=== PATIENT | female | born 1960 | race Caucasian/White ===

== ENCOUNTER 2017-01-03 12:00 | Inpatient (IN) | payer SELFPAY ==
[~2017-01-03] VITALS: Ht 154.9 cm; Wt 115.0 kg
--- NOTE | ~2017-01-03 | DS ---
PATIENT'S NAME: BERNABE MORRIS [facility] AGE: 56 Y [address] ROOM: [place] [address] LOCATION: GPCU ADMIT DATE: 01/03/2017 Discharge Summary DISCHARGE DATE: 01/10/2017 FAMILY PHYSICIAN: Yaritza Crain DO ATTENDING PHYSICIAN: Danica Caicedo FINAL DIAGNOSES: 1. Vancomycin-resistant enterococcus urinary tract infection on antibiotics. 2. C. diff colitis, resolving. 3. Coronary artery disease, status post coronary artery bypass graft history. 4. Loq-[id number] myocardial infarction, refused evaluation. 5. Hypertension. 6. Chronic pain. 7. History of cerebrovascular accident with right hemiplegia, aphasia, and dysphagia. 8. History of seizure. 9. Ileus, resolved. 10. Hypertension. 11. History of multiple sclerosis. CONSULTATIONS: 1. GI, Dr. Hutson. 2. Cardiology, Dr. Mcfarlane. PROCEDURES: None. REASON FOR ADMISSION: This is a 56-year-old female who was transferred for recurrent UTI. The patient has a history of multiple sclerosis, history of CVA in the past, and is CAD status post CABG. The patient presented with VRE UTI. The patient also had concern for fecal impaction and hypertensive urgency at the point of admission. Please see Dr. Caicedo's admission H and P for further details. DIAGNOSTIC STUDIES: Transthoracic echocardiogram was done that showed normal left ventricular contractility with ejection fraction 50% to 55% with normal wall motion. Left atrium mildly dilated. Moderate mitral annular calcification was noted. Lower arterial duplex study was done. The patient underwent a stress test that showed medium anterior ischemia of moderate degree and medium lateral ischemia of moderate degree with LVEF of 44%. Mild hypokinesia involving the anterior and lateral segments with inferior wall normal was noted. Duplex imaging of bilateral lower extremity was done that suggested moderate diffuse calcific disease throughout lower extremity with biphasic waveforms. Hemodynamically significant stenosis of the proximal, superficial, femoral, and proximal popliteal arteries was noted. Monophasic PATIENT'S NAME: BERNABE MORRIS [facility] AGE: 56 Y [address] ROOM: [place] [address] LOCATION: GPCU ADMIT DATE: 01/03/2017 Discharge Summary DISCHARGE DATE: 01/10/2017 FAMILY PHYSICIAN: Yaritza Crain DO ATTENDING PHYSICIAN: Danica Caicedo A waveform on the left dorsalis pedis artery was noted. No focal area of hemodynamically significant stenosis identified at the right lower extremity in the arterial system. Lactate 1.1 on admission. Serial Accu-Cheks were done and were in the range of 126-343. Troponin I was trended and was elevated at 0.252 and subsequently was 0.134 and trending down. Pro-BNP 5951. Serial CBCs were done. White count on admission was 12.6 and subsequently was 9.3, hemoglobin, hematocrit, and platelet levels were within normal range. Serial BMPs were done. Sodium on admission was 153, after treatment, sodium at the time of discharge was 144 and stable; potassium 3.3 on admission, after supplementation was 3.7 and stable; the patient had acute kidney injury; creatinine 1.7 on admission and subsequently was 1.1 after treatment. Hemoglobin A1c 6.4, phenytoin level 8.5 on admission. The patient was briefly placed on a heparin drip that was monitored with PTT levels. INR was 1.4 on admission. UA showed many bacteria, urine creatinine random 149, urine sodium random 42. TSH 0.276. Procalcitonin level 0.13. D-dimer elevated 1.0. Chest x-ray was done on admission and showed no vascular congestion or acute parenchymal infiltrate, past cardiac surgery, and enteric catheter was noted. CT chest PE protocol was done for elevated D-dimer and showed no evidence of PE. Minor subsegmental atelectasis with no consolidation or effusion noted. No aortic lesion noted. No lymphadenopathy noted. Cholelithiasis detected with NG tube in stomach. Left foot x-ray was done for left great toe discoloration and showed no acute bone fracture. Hammertoe deformity of the 2nd, 3rd, 4th, and 5th toes was noted with bone osteopenia and vascular calcification. The patient had a UA with urine culture done at the referral hospital that showed VRE UTI. Blood culture was done at [facility] and remained negative. Urine culture after treatment remained negative. C. diff test was positive on 01/07/2017. HOSPITAL COURSE: This is a 56-year-old female who presented with recurrent UTI, the patient has a history of MS and history of CVA in the past with residual right hemiplegia, aphasia, and dysphagia. The patient answers in yes or no responses only. The patient presented with recurrent UTI, she was found to have VRE UTI, as per reviewed records from the referral hospital. She was transferred for higher level of care. Upon admission to [facility], the patient was found to be in hypertensive urgency. She also had hypernatremia. There was also concern about fecal impaction. After admission to [facility], the patient was placed on Zyvox for VRE UTI, this was continued, and the patient was almost finishing a course of antibiotic at the time of discharge. For ileus, the patient had NG tube that was placed. GI was consulted. The PATIENT'S NAME: MORRIS KIDD [facility] AGE: 56 Y [address] ROOM: [address] [address] LOCATION: GPCU ADMIT DATE: 01/03/2017 Discharge Summary DISCHARGE DATE: 01/10/2017 FAMILY PHYSICIAN: Yaritza Crain DO ATTENDING PHYSICIAN: Danica Caicedo A patient underwent a flexible sigmoidoscopy. Subsequently, her ileus resolved. She was tolerating p.o. She had a bowel movement. No impaction was noted on the flex sig. Atonic colon was noted with stool that was present. The patient continued to do well and was having regular bowel movements. By the time of discharge, her NG tube was discontinued. The patient also had hypertensive urgency. She was placed on blood pressure medication and her blood pressure was stable throughout the course of this hospitalization. At the time of discharge, her home medications were resumed, and the patient's blood pressure was stable. The patient also had hypokalemia that was supplemented and resolved subsequently. The patient developed C. diff. She was placed on Flagyl and she will finish a course of Flagyl. The patient developed chest pain during this admission. The patient underwent a 2D echo. Cardiology was consulted. She underwent a stress test that showed possible ischemia. The patient was recommended heart catheterization; however, the patient and the POA refused any further aggressive workup and they decided that the patient would not want any further aggressive measures or aggressive workup. She was okay with antibiotics and IV fluids, in future, she would also not want any further hospitalization per the patient and POA. We consulted Palliative Care, the patient's wishes were documented, I left a message with Dr. Crain's nurse about the patient's wishes about further care. If she changes her mind, she will let her primary care physician know. The patient also had 3rd degree heart block and was asymptomatic and also had NSVT, but refused any further evaluation from a cardiac perspective. The patient had left great toe discoloration, there was concern for ischemia, arterial duplex was done and findings are as above. X-ray was done and findings are as above; however, the patient refused any further workup and did not want any aggressive measures and procedures. The patient also refused any further lab work for about 3-4 days prior to discharge. She was then discharged to [facility] in stable condition. I left a message for Dr. Crain about the patient's condition and further wishes. DISCHARGE INSTRUCTIONS: The patient is discharged to [facility] in stable condition. Follow up with Dr. Yaritza Crain in 3-4 days' time. She is a DNR/DNI. She is in contact isolation. She is placed on a regular diet. Calorie count is not needed. She is not n.p.o. The patient needs to be upright at 90 degrees with meals, 1:1 feeding advised, weightbearing is as tolerated, OT, PT, and Speech Therapy to evaluate and treat as indicated. O2 p.r.n. to keep sats more than 90%. Accu-Cheks a.c. and h.s. advised. CBC and PATIENT'S NAME: MORRIS KIDD [facility] AGE: 56 Y [address] ROOM: [address] [address] LOCATION: GPCU ADMIT DATE: 01/03/2017 Discharge Summary DISCHARGE DATE: 01/10/2017 FAMILY PHYSICIAN: Yaritza Crain DO ATTENDING PHYSICIAN: Danica Caicedo BMP at followup with PCP. Dilantin level at followup with PCP. PCP to manage Dilantin. She does not have a urinary catheter as this was removed on the day of discharge. She may not have alcoholic beverages. Rehab potential is poor. Discharge potential is poor. The patient and family are aware of condition and prognosis. I attempted to reach her POA, but was not able to get in touch with her, she was aware of the discharge to [facility]. May crush appropriate medications. DISCHARGE MEDICATIONS: 1. Aspirin 325 mg p.o. daily for CAD. 2. Lipitor 80 mg p.o. daily for dyslipidemia. 3. Baclofen 10 mg p.o. t.i.d. for spasms. 4. Plavix 75 mg p.o. daily for CAD. 5. Insulin Humalog 5 units subcu 3 times daily with meals for diabetes mellitus. 6. Insulin Humalog sliding scale insulin moderate level 3 times daily with meals p.r.n. 7. Lantus insulin 10 units subcutaneous at h.s. diabetes mellitus. 8. Lactobacillus 1 tab p.o. b.i.d. for GI prophylaxis. 9. Vasotec 20 mg p.o. b.i.d., hold systolic blood pressure less than 110, for hypertension dose decreased. 10. Flagyl 500 mg p.o. q.8 h. for C. diff, last dose 01/16/2017. 11. MS Contin 15 mg p.o. b.i.d. for pain. 12. Tylenol 650 mg p.o. q.4 h. p.r.n. pain/fever. 13. Lyrica 50 mg p.o. daily for pain. 14. Lasix 40 mg p.o. b.i.d. for CHF, hold systolic blood pressure less than 110. 15. Zaroxolyn 2.5 mg p.o. 3 days a week on Friday, Friday, and Friday for CHF, hold systolic blood pressure less than 110. 16. Glucagon 1 mg subcutaneous for hypoglycemia p.r.n., new medication. 17. Glucose 16 g p.o. for hypoglycemia p.r.n. 18. Nystatin 1 application topically everyday p.r.n. for rash. 19. Coreg 12.5 mg p.o. b.i.d. for hypertension, hold systolic blood pressure less than 110, and heart rate less than 60. 20. Dilantin 500 mg p.o. q.h.s. for seizure, PCP to manage based on Dilantin level. 21. Zoloft 50 mg p.o. q.h.s. for depression. 22. Dulcolax 10 mg rectally everyday p.r.n. constipation. 23. Hydrocortisone 1 application topically twice daily p.r.n. pruritus. 24. Ranitidine 150 mg p.o. b.i.d. for GERD. 25. Savannah 5/325 mg 1 tab p.o. q.8 h. p.r.n. pain. 26. Savannah 5/325 mg 1 tab p.o. t.i.d. for pain. 27. Calcium with vitamin D3 tablet 1 tab p.o. 3 times daily for supplement. 28. Alem 60 mg p.o. b.i.d. for allergies. 29. Robitussin DM 10 mL p.o. q.4 h. p.r.n. cough/congestion. PATIENT'S NAME: MORRIS KIDD [facility] AGE: 56 Y [address] ROOM: [place] [address] [facility] ADMIT DATE: 01/03/2017 Discharge Summary DISCHARGE DATE: 01/10/2017 FAMILY PHYSICIAN: Yaritza Crain DO ATTENDING PHYSICIAN: Danica Caicedo 30. Imodium 4 mg p.o. p.r.n. diarrhea 1 time dose. 31. Milk of magnesia 30 mL p.o. daily p.r.n. constipation. 32. MiraLAX 17 g p.o. b.i.d. for constipation. 33. Mucinex 600 mg p.o. q.12 h. p.r.n. congestion. 34. Senna S tablets 2 tabs p.o. b.i.d. for constipation. 35. Zyvox 600 mg p.o. b.i.d. for 3 days, indication VRE UTI. 36. Nitroglycerin 0.4 mg sublingual p.r.n. chest pain. 37. Ativan 0.5 mg p.o. q.6 h. p.r.n. anxiety. This patient was managed by hospitalist, Cardiology team, and GI teams during this admission. MYRA GAMBINO MD MT/maren /[id number] CC: Yaritza Crain DO d: 01/11/17 0400 t: 01/13/17 2144, DISCHARGE SUMMARY
--- NOTE | ~2017-01-03 | ECHO ---
Transthoracic Echocardiography Report (TTE) Demographics Patient Name MORRIS KIDD Date of Study 01/05/2017 Patient Number [id number] Visit Number [id number] Date of 1960 Room Number G6340 Gender Female Number Age 56 year(s) Referring Denys Watters Finisher [employer]ocks Franklin Tsai Physician RDCS, RVT Physician Interpreting Denys Watters Special Class Welder Physician Supervising Ordering Denys Watters MD/MLP Physician Nurse Stress Pipe And Tank Fabricator Conclusions Contractility Score Summary Normal Left Ventricular contractility was noted. Summary Technically difficult exam. The estimated left ventricular ejection fraction is 50-55% with normal WM and internal dimensions.Moderate concentric left ventricular hypertrophy. The left atrium is mildly dilated. Moderate mitral annular calcification. TDS and RA not well visualized. Procedure Type of Study TTE procedure:2D Echocardiogram. Procedure Date Date: 01/05/2017 Start: 10:19 AM Study Location: Inpatient Portable Technical Quality: Limited visualization due to body habitus. Indications:Abnormal ECG. Appropriate Use Criteria: 9 Patient Status: Routine HR: 79 bpm M-Mode/2D Measurements LV Diastolic Dimension: 2.86 cm LV Systolic Dimension: 1.72 cm LV Septum Diastolic: 1.5 cm LV PW Diastolic: 1.22 cm AO Root Dimension: 3.1 cm Cardiac Output: 6.17 l/min AV Cusp Separation: 1.9 cm RV Diastolic Dimension: 3.36 cm LA volume: 79 ml LVOT: 2.3 cm LVOT VTI: 18.8 cm LV Stroke volume: 78.07 ml Doppler Measurements AV Peak Velocity: 0.85 m/s MV Peak E-Wave: 0.65 m/s AV Peak Gradient: 2.92 mmHg MV Peak A-Wave: 0.95 m/s AV Mean Gradient: 2 mmHg MV E/A Ratio: 0.69 LVOT Peak Velocity: 0.68 m/s MV P1/2t: 63 msec TR Gradient:5.38 mmHg PV Peak Velocity: 0.9 m/s Estimated RAP:5 mmHg PV Peak Gradient: 3.26 mmHg Estimated RVSP: 10 mmHg Estimated PASP: 10.38 mmHg E' Septal Velocity: 0.06 m/s A' Septal Velocity: 0.11 m/s E' Lateral Velocity: 0.08 m/s A' Lateral Velocity: 0.14 m/s Findings Left Ventricle Moderate concentric left ventricular hypertrophy with low normal EF,WM and internal dimension. Right Ventricle Right ventricle not well visualized. Left Atrium The left atrium is mildly dilated. Right Atrium Right atrium not well visualized. Mitral Valve Moderate mitral annular calcification. Trivial mitral regurgitation by color Doppler. Aortic Valve Normal aortic valve structure and function. Tricuspid Valve Trivial tricuspid regurgitation by color Doppler. Pulmonic Valve Normal pulmonic valve structure and function. Pericardial Effusion No evidence of pericardial effusion. Miscellaneous Visualized portions of the aortic root and ascending aorta appear normal in size. Pleural Effusion No evidence of pleural effusion. Contractility Score LV regional wall motion:(0-Non visualized 1-Normal 2-Hypokinesis 3-Akinesis 4-Dyskinesis 5-Aneurysm) Signature dtt: Janene Mcfarlane dtd: 01/05/17 1019 Physician Self Edit
--- NOTE | ~2017-01-03 | HP ---
PATIENT'S NAME: MORRIS KIDD [facility] AGE: 56 Y [address] ROOM: [address] [place], [place] [address] LOCATION: [facility] ADMIT DATE: 01/03/2017 History & Physical DISCHARGE DATE: FAMILY PHYSICIAN: PHYSICIAN, UNKNOWN ATTENDING PHYSICIAN: IAN ARIZA DATE OF SERVICE: CHIEF COMPLAINT: Recurrent UTIs. HISTORY OF PRESENT ILLNESS: A 56-year-old lady with a past medical history of multiple sclerosis, coronary artery disease, status post CABG, unfortunately complicated by left MCA stroke, resident of a nursing facility, had been battling with recurrent UTIs for many years now, presented to the [facility] about 1 week ago with burning on urination. She was admitted there, and she was started on IV antibiotics including Zosyn, and then later switched to Unasyn. Her urinary symptoms did improve a little, but during this course of hospitalization, she developed other complication including ileus, which was diagnosed on the CT of the abdomen, which also showed a big fecal ball in the rectum causing the loop dilatation proximal to it. She also developed multiple electrolyte abnormalities including MERCY on the CKD. She was transferred here to [facility] for further medical care. She is dysphasic secondary to her stroke in the past, but she does answer in yes or no and speaks very little. On my questioning, she said she is not having any chest pain, any shortness of breath. Does not have any dizziness or trouble swallowing, but she did endorse having abdominal pain and pointed to her center of the abdomen. She also complained that she is having hard time moving her bowels at this point. Still complaining of burning on urination and endorsing having colds as well as fever. She denied any orthopnea, PND, or leg swelling at this point. REVIEW OF SYSTEMS: All other systems were reviewed and were negative except what is in mentioned in the HPI. PAST MEDICAL HISTORY: 1. Coronary artery disease, status post CABG, complicated by stroke. 2. Stroke in the left MCA with a dense right hemiparesis as well as dysphasia, multiple sclerosis. 3. Insulin-dependent diabetes mellitus, complicated by kidney disease. 4. Chronic kidney disease, stage 4. 5. Peripheral vascular disease, status post right internal carotid stent. 6. Dysphasia. PATIENT'S NAME: BERNABE MORRIS [facility] AGE: 56 Y [address] ROOM: [place] [address] LOCATION: [facility] ADMIT DATE: 01/03/2017 History & Physical DISCHARGE DATE: FAMILY PHYSICIAN: PHYSICIAN, UNKNOWN ATTENDING PHYSICIAN: IAN ARIZA 7. Neuromuscular bladder dysfunction. 8. Depression. 9. Seizures. 10. Hyperlipidemia. 11. Essential hypertension. ALLERGIES: THE PATIENT IS ALLERGIC TO PENICILLIN. SHE TOLD ME THAT SHE GETS SWELLING OF THE THROAT WELL RASH, BUT APPARENTLY, SHE GOT UNASYN WELL ZOSYN AT THE OTHER HOSPITAL WITHOUT ANY ADVERSE EVENT. FAMILY HISTORY: On inquiry, it appears that it is positive for coronary artery disease, stroke, as well as diabetes in both mom and dad. SOCIAL HISTORY: The patient has never been a smoker. Lives in a nursing facility. MEDICATIONS: Being reconciled right now. PHYSICAL EXAMINATION: VITAL SIGNS: Blood pressure 205/97, 65, 16, afebrile. GENERAL: No acute distress. Alert and oriented x3. HEENT: Head: Atraumatic, normocephalic. Eyes: Nonicteric. No pallor. Oropharynx: Dry mucous membranes with thick secretions noted. CARDIOVASCULAR: S1, S2. No murmurs, gallops, or rubs. LUNGS: Clear to auscultation bilaterally. ABDOMEN: Obese, soft. Some mild tenderness noted in the epigastric region. Bowel sounds are hypoactive. EXTREMITIES: Do not reveal any edema, but the left great toe does have blue discoloration on it. PSYCH: Could not be assessed at this point because of the patient's dysphasia. NEURO: She has gross motor dysfunction on the right upper and lower extremities. Power 1/5 in both upper and lower right extremities. ASSESSMENT AND PLAN: Hypertensive urgency. Insulin-dependent diabetes mellitus. Acute kidney injury and chronic kidney disease stage 4. Vancomycin-resistant Enterococcus faecalis acute cystitis. Ileus with likely bowel obstruction, partial. Peripheral vascular disease. Hypernatremia Hypokalemia. PATIENT'S NAME: BERNABE MORRIS [facility] AGE: 56 Y [address] ROOM: [place] [address] LOCATION: [facility] ADMIT DATE: 01/03/2017 History & Physical DISCHARGE DATE: FAMILY PHYSICIAN: PHYSICIAN, UNKNOWN ATTENDING PHYSICIAN: IAN ARIZA Epilepsy. PLAN: The patient is going to be admitted to medical-surgical unit. She will be given labetalol to treat her hypertensive urgency at this point. Urine cultures came back positive for VRE, and we are going to treat this with linezolid IV at this point. NG is in place, which is clamped, and if she gets nauseous or vomiting, we will put it to suction. GI consultation has been requested for this fecal rectal ball, and per them, flex-sig will be done. We will obtain a C. diff assay as well. Free water flushes to correct hypernatremia. Replace K. We will reduce her home dose of insulin given her n.p.o. status. We will get Dopplers of the lower extremities arterial. Convert phenytoin 500 p.o. to IV. We will obtain blood cultures. The patient is a DNR/DNI. MD PANTERA FLEMING/teresal /[id number] D: 245 T: 843 HISTORY & PHYSICAL
--- NOTE | ~2017-01-03 | ENPV ---
Vascular Lower Extremities Arterial Duplex Procedure Demographics Patient Name MORRIS KIDD Date of Study 01/07/2017 Patient Number [id number] Gender Female Date of 1960 Age 56 Visit Number [id number] Height 61 Accession Number [id number] Weight 256.84 Referring Fina Loera PA-C Interpreting Diego Kern MD Physician Physician Physician Ordering Fina Jack I Stone Hand Physician EVY Dairy Feed Sales Consultant Otilia Yoder RDCS, RVT Franklin Tsai RDCS, RVT Conclusions Summary Duplex imaging of the bilateral lower extremities suggests mild to moderate diffuse calcific disease throughout the lower extremities with biphasic waveforms. Duplex imaging of the left leg reveals a hemodynamically significant stenosis of the proximal superficial femoral and proximal popliteal arteries. Monophasic waveform seen on left dorsalis pedis artery. No focal area of hemodynamically significant stenosis identified at right lower extremity arterial system. Procedure Type of Study: Extremities Arteries:Lower Extremities Arterial Duplex, Arterial Duplex Lower Extremity Bilateral. Indications for Study:Limb ischemia/ digital ischemia. Appropriate Use Criteria:9 Patient Status:Routine. Study Location:Inpatient Portable. Technical Quality:Limited visualization due to patient immobility. Risk Factors - The patient's risk factor(s) include: renal failure , insulin-treated diabetes mellitus, treated arterial hypertension, prior DE and prior CABG. - The patient has a former tobacco history. Stenosis - A stenosis was found in the Left Prox SFA. Measurements:Pre Stenosis PSV: 116 cm/s.Stenosis PSV:205 cm/s.Post Stenosis PSV: 66 cm/s. - A stenosis was found in the Left Prox Popliteal. Measurements:Pre Stenosis PSV: 65 cm/s.Stenosis PSV:210 cm/s.Post Stenosis PSV: 153 cm/s. Velocities are measured in cm/s ; Diameters are measured in cm LE Duplex Measurements + ++-----+ +----+---+ + ! !!Right! !Left! ! ! + ++-----+ +----+---+ + !Location !!PSV !Wave Desc. ! !PSV!Wave Desc. ! + ++-----+ +----+---+ + !Femoral !!110 !Biphasic ! !104!Triphasic ! + ++-----+ +----+---+ + !PFA !!108 !Biphasic ! !49 !Biphasic ! + ++-----+ +----+---+ + !Prox SFA !!84 !Biphasic ! !205!Biphasic ! + ++-----+ +----+---+ + !Mid SFA !!65 !Biphasic ! !66 !Biphasic ! + ++-----+ +----+---+ + !Dist SFA !!100 !Biphasic ! !58 !Biphasic ! + ++-----+ +----+---+ + !Prox Popliteal !!86 !Biphasic ! !210!Biphasic ! + ++-----+ +----+---+ + !Mid Popliteal !! ! ! !32 ! ! + ++-----+ +----+---+ + !Dist Popliteal !!74 !Biphasic ! !63 !Biphasic ! + ++-----+ +----+---+ + !Dist LEAD MATERIAL HANDLER !!36 !Biphasic ! !84 !Biphasic ! + ++-----+ +----+---+ + !DP !!33 !Biphasic ! !10 !Monophasic ! + ++-----+ +----+---+ + Signature dtt: Fabian Cortez dtclay: 01/07/17 1003 Physician Self Edit
--- NOTE | ~2017-01-03 | ENPV ---
Vascular Lower Arterial Plethysmography Procedure Demographics Patient Name MORRIS KIDD Date of Study 01/03/2017 Patient Number [id number] Gender Female Date of 1960 Age 56 Visit Number [id number] Height 61 Accession Number [id number] Weight 256.01 Referring Marifer Yeboah Interpreting [facility] Physician Physician Vicenta Aragon Physician Ordering Marifer Yeboah Concrete Pavement Installer Physician Geophysical Prospecting Permit Agent Ana Lilia Salazar RVT Conclusions Summary Unable to compress MECHANIC SENIOR,DPA and great toe bilaterally. Procedure Type of Study: Extremities Arteries:Lower Arterial Plethysmography, Ankle/Brachial Indicies. Indications for Study:Limb ischemia/ digital ischemia. Appropriate Use Criteria:9 Patient Status:Routine. Study Location:Inpatient Portable. Technical Quality:Adequate visualization. Velocities are measured in cm/s ; Diameters are measured in cm Pressures + ++--------+-----+----+--------+-----+ ! !!Right ! !Left! ! ! + ++--------+-----+----+--------+-----+ !Location !!Pressure!Ratio! !Pressure!Ratio! + ++--------+-----+----+--------+-----+ !Ankle PT !!0 !0 ! !0 !0 ! + ++--------+-----+----+--------+-----+ !DP !!0 !0 ! !0 !0 ! + ++--------+-----+----+--------+-----+ !Great Toe !!0 !0 ! !0 !0 ! + ++--------+-----+----+--------+-----+ - Brachial Pressure:Right: 194.Left:195. - PER:Right: 0.Left: 0. Plethysmographic Digit Evaluation +---------++--------+-----+ ++--------+-----+ + ! !!Right ! !Left !! ! ! ! +---------++--------+-----+ ++--------+-----+ + !Location !!Pressure!Ratio!PPG Wave Form !!Pressure!Ratio!PPG Wave Form ! +---------++--------+-----+ ++--------+-----+ + !Great Toe!!0 !0 ! !!0 !0 ! ! +---------++--------+-----+ ++--------+-----+ + Signature dtt: Babar Yadav: 01/03/17 1733 Physician Self Edit
--- NOTE | ~2017-01-03 | CON ---
PATIENT'S NAME: MORRIS KIDD [facility] AGE: 56 Y [address] ROOM: [place] [address] LOCATION: GPCU ADMIT DATE: 01/03/2017 Consultation DISCHARGE DATE: 01/10/2017 FAMILY PHYSICIAN: Yaritza Crain DO ATTENDING PHYSICIAN: Danica Caicedo DATE OF CONSULTATION: 01/07/2017 REFERRING PHYSICIAN: Ramírez Quezada MD PALLIATIVE MEDICINE CONSULT LOCATION: PCU room 6340. CHIEF COMPLAINT: Palliative care referral for goals of care discussion. HISTORY OF PRESENT ILLNESS: The patient is a 56-year-old female, resident of [facility], who was admitted to the [facility] with fecal impaction and VRE urinary tract infection. The patient was found to be in the second-degree and third- degree heart block and developed chest pain after transfer from the [facility]. The patient has a history of multiple sclerosis, coronary artery disease, status post CABG, left MCA stroke with resulting aphasia and right- sided weakness as well as recurrent urinary tract infections. It should also be noted that the family reports the patient was on hospice from February 2014 through April 2014 after a hospitalization for bradycardia. The patient did subsequently recover and discharge from hospice services. She reports that she has lived at the retirement for many years. She has chronic back pain and is on MS Contin. Reportedly during this hospital stay, the patient has been refusing EKGs and further lab draws. Thus, Palliative Care has been consulted to discuss goals of care. PREVIOUS OPERATIONS: 1. CABG. 2. Right carotid stenting. PAST MEDICAL HISTORY: 1. Multiple sclerosis. 2. Coronary artery disease, status post CABG. 3. Left MCA stroke with right hemiparesis and aphasia. 4. Multiple sclerosis. 5. Insulin-dependent diabetes mellitus. 6. Chronic kidney disease, stage 4. 7. Peripheral vascular disease. PATIENT'S NAME: MORRIS KIDD [facility] AGE: 56 Y [address] ROOM: [place] [address] LOCATION: GPCU ADMIT DATE: 01/03/2017 Consultation DISCHARGE DATE: 01/10/2017 FAMILY PHYSICIAN: Yaritza Crain DO ATTENDING PHYSICIAN: Khalid,Mishra A 8. Neuromuscular bladder dysfunction. 9. Depression. 10. Seizures. 11. Hypertension. MEDICATIONS: Please see current MAR. ALLERGIES: PENICILLIN. SOCIAL HISTORY: The patient never . She has lived at the retirement for many years, 5+ years. No history of tobacco or alcohol use. Her aunt is her power of securities attorney. FAMILY HISTORY: Coronary artery disease, stroke, and diabetes in both her parents. REVIEW OF SYSTEMS: GENERAL: Appetite is good. No recent fever, chills, or night sweats since hospitalization. Denies any changes in weight. HEENT: No new changes in vision or hearing. Does complain of a headache. This is most likely related to the nitroglycerin drip that she is on. RESPIRATORY: Denies shortness of breath or cough. CARDIOVASCULAR: Denies chest pain at the current time, but as previously reported, she is on a nitroglycerin drip. When she does have chest pain, it is midsternal, radiating up into the neck. GASTROINTESTINAL: Does complain of some abdominal discomfort. Denies feeling nausea or vomiting. The patient denies any difficulties chewing or swallowing. GENITOURINARY: She has a Baptiste catheter. Does have a history of recurrent urinary tract infections. Reports that she does not have a chronic indwelling Baptiste catheter though. MUSCULOSKELETAL: Reports that she has chronic back pain, though denies any pain at this time. NEUROLOGICAL: No numbness or tingling. No recent seizures. Denies dizziness. INTEGUMENTARY: No rashes or open areas. HEMATOLOGICAL: No new bruising or bleeding. PSYCHIATRIC: She denies feeling overly depressed or anxious. PHYSICAL EXAMINATION: VITAL SIGNS: Blood pressure 138/69, heart rate 89, temperature 98.2, respirations 22, O2 sats 92% on room air. PATIENT'S NAME: MORRIS KIDD [facility] AGE: 56 Y [address] ROOM: [facility] [place] [address] LOCATION: GPCU ADMIT DATE: 01/03/2017 Consultation DISCHARGE DATE: 01/10/2017 FAMILY PHYSICIAN: Yaritza Crain DO ATTENDING PHYSICIAN: Danica Caicedo GENERAL: Reveals a middle-aged debilitated white female, who is lying in a hospital bed. Does not appear to be in any acute distress. She primarily gives yes or no answers. She is able to say on occasion a short phrase or sentence. Most of the time does say yes to questions asked and then corrects herself when questioned if she meant yes or no. HEENT: Normocephalic, atraumatic. Pupils are equal and reactive to light. Sclerae anicteric. Conjunctivae pink. Tongue and mucous membranes are moist and pink. Dentition is poor. CARDIOVASCULAR: Heart tones regular rate and rhythm. I am not able to note a murmur. RESPIRATORY: Respirations are regular, nonlabored at rest. Lung sounds are clear to auscultation bilaterally. I am not able to note any rales, rhonchi, or wheezes. GASTROINTESTINAL: Abdomen is obese, soft. Mildly tender throughout. Bowel sounds are present. MUSCULOSKELETAL: Does have contractures of her right upper and lower extremities and trace bilateral lower extremity edema. SKIN: Warm and dry. No unusual lesions or rashes. NEUROLOGICAL: Does have right-sided hemiparesis. Palliative performance scale is 40%. IMPRESSION AND PLAN: 1. Abdominal pain secondary to C. diff. She is currently on Flagyl. 2. Debility secondary to an old CVA. 3. Chest pain, currently on a nitroglycerin drip. The patient is refusing further workup or treatment. 4. Code status. The patient is a DNR/DNI. She does have a paper on the chart that states that her aunt, Jeimy, is her power of securities attorney. Introduced the role of palliative care to the patient and her power of securities attorney. Discussed the patient's multiple comorbidities, as well as acute onset of chest pain as well as her VRE and C. diff infections. Initially, the patient tells me she does not want any further treatment to include treatment of VRE, C. diff, or her chest pain. She just wants to be made comfortable. Discussed with her the fact that not treating C. diff could make her quite uncomfortable and difficult to treat given the diarrhea and abdominal pain as well as sepsis that would ensue. The patient also stated she is considering stopping all of her oral medications as well, but at this point, we will continue with her current treatment but does not want her level of care escalated. Given this, I did assist the patient and power of securities attorney in completing a POLST form, which states the patient does not want any further hospitalizations. She does not want any further antibiotic treatment after this hospital stay. Stating she wants to be to be made comfortable where she is at. Both the patient and her power of securities attorney are in agreement with these decisions. The patient verbalizes understanding of the fact that she could if we do not treat an infection and that she could also have a major PATIENT'S NAME: MORRIS KIDD [facility] AGE: 56 Y [address] ROOM: [id number] [place] [id number] LOCATION: GPCU ADMIT DATE: 01/03/2017 Consultation DISCHARGE DATE: 01/10/2017 FAMILY PHYSICIAN: Yaritza Crain DO ATTENDING PHYSICIAN: Danica Caicedo A cardiac event. The patient reports to me that her quality of life is not good and has not been good for quite some time, and that she is ready for her time to come. Throughout the conversation, she states multiple times that she is tired of living in her current condition. Provided education and emotional support in regard to this to both the patient and her power of securities attorney. Answered their questions to their satisfaction. They denied any spiritual needs or concerns. At this point, the patient states that her primary goal is to get back to the retirement and be made comfortable. Discussed with the patient and her power of securities attorney also the benefits of hospice services as the patient had these benefits previously. At this point, the patient is stating she does not see the benefit in having hospice. I did inform her that upon discharge, we could send her home with the medication she would need to be comfortable should her condition declined. Total visit time was 45 minutes, greater than 50% of this time was spent providing education, counseling, and support. Thank you for allowing me to assist the patient and family. VIVIANA POON NP FOR MD LUDWIG BRYAN/maren /[id number] CC: Ramírez Quezada MD d: 01/16/17 2146 t: 01/17/17 1501, CONSULTATION REPORT
--- NOTE | ~2017-01-03 | CON ---
PATIENT'S NAME: MORRIS KIDD [facility] AGE: 56 Y [address] ROOM: [address] [place], [place] [address] LOCATION: [facility] ADMIT DATE: 01/03/2017 Consultation DISCHARGE DATE: FAMILY PHYSICIAN: PHYSICIAN, UNKNOWN ATTENDING PHYSICIAN: IAN ARIZA DATE OF CONSULTATION: 01/04/2017 PATIENT OF: Dr. Curtis. HISTORY OF PRESENT ILLNESS: Mrs. Kidd is a 56-year-old female patient, transferred from [facility] where she was hospitalized for UTI and severe constipation. She came here to have her constipation taken care of and Dr. Forte is working on it at this time. While here, she was noted to have second-degree and third- degree AV block with bradycardia. She had it about at 02:46 this morning as well as at 9:00 a.m. this morning. She was on Coreg 12.5 mg b.i.d., which I have held at this time. She is an unfortunate lady with history of multiple sclerosis; coronary artery disease, status post CABG; left MCA stroke with aphasia and flaccidity of her right- sided limbs; recurrent urinary tract infections; NG tube; and she is mostly a [facility] resident. She is a DNR and DNI. The patient is unable to give any specific symptoms at this time, but she is alert, awake, and appears to nod appropriately to some questions. She does not appear to have any chest pains or shortness of breath. She denies lightheadedness. Lying flat, she does not seem to have any trouble with breathing. There is no history of atrial fibrillation or palpitations or ankle swelling. The patient has insulin-dependent diabetes, CKD stage 4, peripheral vascular disease, status post right internal carotid stent, hyperlipidemia, and hypertension. She is a nonsmoker. I do not see anywhere in my chart where she has had an OH, rheumatic fever, heart murmur, congestive heart failure, or atrial fibrillation. MEDICATIONS: 1. Aspirin 81 mg a day. 2. Phenytoin 300 mg b.i.d. 3. KCl. 4. D5W because of hypernatremia. 5. Lorazepam 1 mg every 12 hours as needed. 6. Nystatin. 7. Baclofen 10 mg t.i.d. PATIENT'S NAME: MORRIS KIDD [facility] AGE: 56 Y [address] ROOM: [place] [address] LOCATION: [facility] ADMIT DATE: 01/03/2017 Consultation DISCHARGE DATE: FAMILY PHYSICIAN: PHYSICIAN, UNKNOWN ATTENDING PHYSICIAN: IAN ARIZA 8. Protonix 40 mg once a day. 9. Labetalol p.r.n. which I have held. 10. Heparin 5000 t.i.d. 11. Lactobacillus. 12. Linezolid 300 mL b.i.d. 13. Ondansetron 4 mg q.4 hours p.r.n. ALLERGIES: NO KNOWN DRUG ALLERGIES. PAST MEDICAL HISTORY: 1. Severe constipation. 2. Severe spasticity. 3. History of seizures. 4. CKD. 5. Neuromuscular bladder dysfunction. 6. Depression. 7. Obesity. SOCIAL HISTORY: The patient is a [facility] resident. She is a DNR and DNI. She is a nonsmoker and does not abuse alcohol. FAMILY HISTORY: Positive for coronary artery disease. REVIEW OF SYSTEMS: Difficult to obtain. PHYSICAL EXAMINATION: VITAL SIGNS: Her blood pressure is ranging from 150s to about 200 systolic, heart rate is in the 80s, respirations are 18, and afebrile. HEENT: Normal. NECK: Supple. No JVD, thyromegaly, lymphadenopathy, or carotid bruit. CARDIAC: PMI is not well located. First and second heart sounds are distant. There are no added sounds or murmurs. EXTREMITIES: Reveal no edema. CENTRAL NERVOUS SYSTEM: Dense right hemiplegia and aphasia. ASSESSMENT: A 56-year-old female patient with multiple comorbid conditions, having second- degree and third-degree atrioventricular block, without any symptoms, and she is just laying most often. I have stopped all the beta blockers and we will check a TSH and if it is normal, we will continue to observe her. If her problems reoccur, we will have to consider a permanent pacemaker placement if PATIENT'S NAME: MORRIS KIDD [facility] AGE: 56 Y [address] ROOM: [place] [address] LOCATION: [facility] ADMIT DATE: 01/03/2017 Consultation DISCHARGE DATE: FAMILY PHYSICIAN: PHYSICIANCASTILLO ATTENDING PHYSICIAN: IAN ARIZA the patient and family wants to. Again, I appreciate this opportunity to participate in the care of Mrs. Kidd. MD ROLLY VALDOVINOS/maren /[id number] d: 01/05/17 0053 t: 01/14/17 1215, CONSULTATION REPORT
--- NOTE | ~2017-01-03 | ESTC ---
Cardiac Perfusion Imaging Demographics Patient Name BERNABE CACERES Gender Female VIKTORIYA Patient Number [id number] Race Visit Number [id number] Ethnicity Corporate ID Room Number [id number] Accession Number [id number] Height 61 inches Date of 1960 Weight 256.8 pounds MD Interpreting Denys Watters Date of study 01/06/2017 Physician Supervising /DONALDOP Denys Watters NM Technologist Marylin Godinez MD Ordering Physician Denys Watters Stress MD sales technician home theater Stress ECG Reading Denys Watters Nurse Candy Gutiérrez Physician RN Medications Reviewed with Patient prior to Procedure. Procedure Procedure Type: Nuclear Stress Test:Pharmacological, Lexiscan, Cardiolite Stress Test Procedure Start time: 01/06/2017 08:00 Indications: Ventricular Tachycardia and Hypertension. Risk Factors The patient risk factors include:prior CABG;cerebrovascular disease, former tobacco use, treated hypertension, insulin treated diabetes mellitus, renal failure, prior heart failure and prior ID . Conclusions Summary Medium anterior ischemia of moderate degreee. Medium lateral ischemia of moderate degree. LVEF:44%. Mild hypokinesia involving the anterior and lateral segments.Inferior wall is normal. Stress Protocols Resting ECG RSR Pre-stress physical exam: Un changed. Peak HR:97 bpm HR/BP product:[id number] Peak BP:180/79 mmHg Predicted HR: 166 bpm % of predicted HR: 58 ECG Findings No ECG changes suggestive of ischemia. Arrhythmias No rhythm abnormality. Symptoms Nausea. Stress Interpretation Lexiscan cardiolite with normal hemodynamic changes. No ischemia. No arrythmias. Imaging Results Applied corrections - Motion correction applied High risk findings Summed scores - Summed stress score: 14 - Summed rest score: 9 - Summed difference score: 5 Stress ejection Ejection fraction:43 % EDV :109 ml ESV :62 ml Stroke volume :47 ml LV mass :149 gr LV size:Normal LV systolic function impairment: Mild Imaging Protocols Rest Stress Isotope:Tc99m Sestamibi IV Isotope: Tc99m Sestamibi IV Isotope dose:15.3 mCi Isotope dose:48.5 mCi Date:01/06/2017 07:20 Date:01/06/2017 09:50 Technique: SPECT Technique: Gated Supine SPECT Supine IV remains in place after procedure. Procedure Medications - Regadenoson (Lexiscan) 0.4 mg IV over 10-15 sec. I.V. 0.4 mg. Medications administered per verbal order and read back to physician prior to administration. Medical History Admission Data Admission date: 01/03/2017 Admission Time: 13:04 Hospital Status: Inpatient. Signatures dtt: Janene Mcfarlane dtd: 01/06/17 0800 Physician Self Edit
--- NOTE | ~2017-01-03 | CON ---
PATIENT'S NAME: MORRIS KIDD [facility] AGE: 56 Y [address] ROOM: [place] [address] LOCATION: [facility] ADMIT DATE: 01/03/2017 Consultation DISCHARGE DATE: FAMILY PHYSICIAN: PHYSICIAN, UNKNOWN ATTENDING PHYSICIAN: IAN ARIZA REASON FOR CONSULTATION: Possible fecal impaction. HISTORY OF PRESENT ILLNESS: This is a pleasant 56-year-old female with past medical history of multiple sclerosis, coronary artery disease status post CABG, left MCA, stroke, which has left the patient aphasic and recurring urinary tract infections. The patient presented to the [facility] approximately a week ago with UTI. She was admitted there and started on IV antibiotics. Her urinary symptoms did not improve over the course of the hospitalization. She then developed other complications including ileus diagnosed on CT scan. This also did show fecal impaction in the rectum causing loop dilation proximal to it. We were asked to see in consultation for the fecal impaction as digital stimulation and has been attempted with no relief. The patient was seen and examined. The patient nods appropriately to questions, though is completely aphasic. The patient nods yes to history of chronic constipation. She does complain of some abdominal pain into the center of her abdomen when asked to point. She still complains of burning of urination and endorses having chills and fever. She denies any chest pain, chest pressure, shortness of breath. She does have an NG tube placed secondary to her ileus. She did have a couple drinks of water as she did state that this did not cause any discomfort. PAST MEDICAL HISTORY: 1. Coronary artery disease, status post CABG complicated by stroke. 2. Stroke in the left MCA with dense right hemiparesis as well as aphasia. 3. Multiple sclerosis. 4. Insulin-dependent diabetes mellitus complicated by kidney disease. 5. Chronic kidney disease, stage IV. 6. Peripheral vascular disease, status post right internal carotid stent. 7. Aphasia. 8. Neuromuscular bladder dysfunction. 9. Chronic constipation. 10. Depression. 11. Seizures. 12. Hyperlipidemia. 13. Essential hypertension. PAST SURGICAL HISTORY: PATIENT'S NAME: MORRIS KIDD [facility] AGE: 56 Y [address] ROOM: [place] [address] LOCATION: [facility] ADMIT DATE: 01/03/2017 Consultation DISCHARGE DATE: FAMILY PHYSICIAN: , UNKNOWN ATTENDING PHYSICIAN: IAN ARIZA CABG, cardiac catheterization, right carotid artery stent. She denies any history of upper endoscopy or colonoscopy. SOCIAL HISTORY: The patient denies any tobacco use. She lives in a nursing facility. She denies any alcohol or illicit drug use as well. FAMILY HISTORY: Positive for coronary artery disease, stroke, and diabetes in both her parents. She denies any known gastrointestinal diseases or cancers to her knowledge. ALLERGIES: THE PATIENT IS ALLERGIC TO PENICILLIN. CURRENT MEDICATIONS: Please refer to the medication administration record. REVIEW OF SYSTEMS: All point review of systems was completed. All were negative except for those identified in the history of present illness. PHYSICAL EXAMINATION: GENERAL: A pleasant 56-year-old female, lying in bed, who appears to be in no acute distress. VITAL SIGNS: Temperature 99.4, pulse of 82, respirations of 16, blood pressure 120/49, oxygen saturations 100% on room air. SKIN: [place], warm, dry. No jaundice. HEENT: Head is normocephalic and atraumatic. Pupils equal, round, and reactive to light. Sclerae are clear. Nonicteric. Oral mucosa is pink and moist. NG tube is currently placed. CARDIOVASCULAR: Regular. Normal S1, S2. RESPIRATORY: Respirations even and nonlabored. LUNGS: Clear to auscultation. ABDOMEN: Soft. Mildly tender with palpation throughout. Bowel sounds are hypoactive x4 quadrants. MUSCULOSKELETAL: No muscle weakness or atrophy. EXTREMITIES: No clubbing, cyanosis, or edema. NEUROLOGIC: Grossly nonfocal. The patient is aphasic. LABS AND DIAGNOSTICS: Laboratory was obtained and reviewed from the outside facility. On admission to [facility], the patient's white blood cell count was 12.6, hemoglobin of 12.1, hematocrit of 37.9, and platelets of 175. Chemistry panel includes a glucose of 152, BUN of 37, creatinine 1.7. Sodium 153, potassium PATIENT'S NAME: MORRIS KIDD [facility] AGE: 56 Y [address] ROOM: [place] [address] LOCATION: [facility] ADMIT DATE: 01/03/2017 Consultation DISCHARGE DATE: FAMILY PHYSICIAN: PHYSICIAN, UNKNOWN ATTENDING PHYSICIAN: IAN ARIZA A of 3.3, chloride 114, CO2 of 27. Liver enzymes are within normal limits. A CT was also completed at the outside facility with Dr. Calderon Macias showing fecal impaction from approximately 6 cm from the rectal opening to approximately 20 cm on the left side of the colon. ASSESSMENT AND PLAN: Again, this is a very pleasant 56-year-old female with multiple comorbidities, who was transferred to [facility] from [place] with complicated urinary tract infection and vancomycin-resistant Enterococcus and her urine now growing. At this time, we were asked to see in consultation for fecal impaction. It was attempted for digital stimulation and removal without any relief. This was discussed with Dr. Bob Forte. We will go forth with 1 L tap water enema to soften the stool. Flexible sigmoidoscopy will also be completed as well as disimpaction under anesthesia. The patient verbalizes understanding as further recommendations to be given status post flexible sigmoidoscopy. The patient will be kept n.p.o. further pending procedure. Thank you for this consult. JEAN MAGUIRE APRN FOR MD BREANNE ROSARIO/maren /[id number] d: 01/04/17 1659 t: 01/31/17 0725, CONSULTATION REPORT
[2017-01-03] MEDS ORDERED: UNASYN3 GM IV (13:45)
[2017-01-03] MEDS ORDERED: LIORESAL10 MG PO (13:46)
[2017-01-03] MEDS ORDERED: ASPIRIN LO-DOSE81 MG PO (13:46)
[2017-01-03] MEDS ORDERED: PLAVIX75 MG PO (13:47)
[2017-01-03] MEDS ORDERED: COREG12.5 MG PO (13:47)
[2017-01-03] MEDS ORDERED: LANTUS (IN100 UNIT/M SUB-Q (13:48)
[2017-01-03] MEDS ORDERED: LASIX40 MG PO (13:48)
[2017-01-03] MEDS ORDERED: HUMALOG100 UNIT/1 SUB-Q ×2 (13:49→14:01)
[2017-01-03] MEDS ORDERED: REGLAN ORAL5 MG/5 ML IV (13:50)
[2017-01-03] MEDS ORDERED: PANTOPRAZOLE IV (13:51)
[2017-01-03] MEDS ORDERED: DILANTIN100 MG PO (13:52)
[2017-01-03] MEDS ORDERED: ZOLOFT50 MG PO (13:53)
[2017-01-03] MEDS ORDERED: LYRICA 50MG CAP50 MG PO (13:53)
[2017-01-03] MEDS ORDERED: KCL IV (13:55)
[2017-01-03] MEDS ORDERED: TYLENOL325 MG PO (13:56)
[2017-01-03] MEDS ORDERED: FEVERALL325 MG R (13:56)
[2017-01-03] MEDS ORDERED: DULCOLAX10 MG R (13:57)
[2017-01-03] MEDS ORDERED: HYDROCORTISON28.4 G2 TOP (13:58)
[2017-01-03] MEDS ORDERED: MORPHINE 2MG/2 MG/ML IV (14:02)
[2017-01-03] MEDS ORDERED: NYSTATIN1 EAC1 TOP (14:02)
[2017-01-03] MEDS ORDERED: ONDANSETRON4 MG/2 ML IV (14:03)
[2017-01-03] MEDS ORDERED: [UNRECOGNIZED DRUG - OTHER] PO (14:05)
[2017-01-03] MEDS ORDERED: PHENERGAN25 MG/1 M1 IM (14:06)
[2017-01-03] MEDS ORDERED: MS CONTIN15 MG PO (14:08)
[2017-01-03] MEDS ORDERED: HYDROCODON-ACE1 EAC4 PO (14:08)
--- NOTE | 2017-01-03 14:40 | NUR ---
Pt is 56 y/o female admit for fecal impaction for hospital. No allergies. pt alert but unable to assess orientation. [facility] [place]. Pt has hx MS,CVA-R hemiplagia,full lift,htn,CHF,CABG,CAD,epilepsy, dysphagia,aphasia,CKD,gerd,constipation,IDDM,vit B12,vit D def,depression, urinary retention,neuromuscular dysfunction of bladder. pt arrived via ambulance. plan is for GI consult. Enema and possible flex sig.
[2017-01-03 15:16] LABS: BASOPHIL # 0.1 K/uL (0.0-0.2); BASOPHIL % 0.5 %; EOSINOPHIL # 0.1 K/uL (0.0-0.5); EOSINOPHIL % 0.9 %; HEMATOCRIT 37.9 % (33.0-46.0); HEMOGLOBIN 12.1 g/dL (10.0-15.0); IMMATURE GRANULOCYTE # 0.1 K/uL (0.0-0.3); IMMATURE GRANULOCYTE % 0.7 %; LYMPHOCYTE % 7.9 %; MCH 32.1 pg (27.0-34.0); MCHC 31.9 gm/dL (32.0-36.5); MCV 100.5 fl (83.0-98.0); MONOCYTE # 0.5 K/uL (0.0-1.0); MONOCYTE % 4.3 %; MPV 11.4 fl (9.4-12.4); NEUTROPHIL # (ANC) 10.8 K/uL (1.8-7.8); NEUTROPHIL % 85.7 %; NRBC % 0 /100WBC (0-0.00); PLATELET COUNT 175 K/uL (150-450); RBC 3.77 M/uL (3.50-5.50); RDW-CV 15.1 % (11.9-14.6); WBC 12.6 K/uL (4.0-11.0)
[2017-01-03 15:33] LABS: ANION GAP 15.3 (10.0-19.0); CALCIUM 8.6 mg/dL (8.5-10.5); CREATININE 1.7 mg/dL (0.5-1.1); POTASSIUM 3.3 mMol/L (3.7-5.1); TOTAL BILIRUBIN 0.4 mg/dL (0.0-1.5); TOTAL PROTEIN 7.1 g/dL (6.0-8.4)
[2017-01-03 20:24] LABS: BLOOD URINE 10 /UL (NEGATIVE); COLOR URINE YELLOW (YELLOW); GLUCOSE URINE 100 mg/dL (NEGATIVE); KETONE URINE 50 mg/dL (NEGATIVE); LEUKOCYTES URINE 25 /UL (NEGATIVE); NITRITE URINE NEGATIVE (NEGATIVE); PROTEIN URINE 30 mg/dL (NEGATIVE); TURBIDITY URINE CLEAR (CLEAR); UROBILINOGEN URINE NORMAL (NORMAL)
[2017-01-03 20:32] LABS: AMORPHOUS URINE 2+ (NEGATIVE); BACTERIA URINE MANY (NEGATIVE); RBC URINE 0-2 #/HPF (NEGATIVE)
[2017-01-03 20:33] LABS: HYALINE CAST URINE 0-2 #/LPF (NEGATIVE); WBC CLUMPS URINE FEW (NEGATIVE)
--- NOTE | 2017-01-04 04:47 | NUR ---
Significant Event:pt alert and oriented x3. is unable to speak however will answer yes/no questions. pt sleepy upon arrival. vss when pt arrived to floor. iv started to right upper arm for dilatin however later infiltrated so new iv to right hand for dilantin. pt also has midline to left upper arm. old fistula site to left lower arm. ng placed in or to left nare. is on cont low suction with 250 dark green output. pt has incresed secretions however states this is a chronic problem. pt denies pain when asked. q6 blood sugars, blood sugar at 2300 126. colin placed upon admission to floor, groin is red. pt noted to have numerous bruised areas, bilateral toes, right hand, right arm. afebrile. pt is a full lift 2 assist. reposistion q2hr and prn. pt has right side paralysis. Follow up:
[2017-01-04 05:13] LABS: BASOPHIL # 0.1 K/uL (0.0-0.2); BASOPHIL % 0.6 %; EOSINOPHIL # 0.3 K/uL (0.0-0.5); EOSINOPHIL % 2.4 %; HEMATOCRIT 35.5 % (33.0-46.0); HEMOGLOBIN 11.4 g/dL (10.0-15.0); IMMATURE GRANULOCYTE # 0.1 K/uL (0.0-0.3); IMMATURE GRANULOCYTE % 0.8 %; LYMPHOCYTE # 1.3 K/uL (0.8-4.0); LYMPHOCYTE % 10.2 %; MCH 32.3 pg (27.0-34.0); MCHC 32.1 gm/dL (32.0-36.5); MCV 100.6 fl (83.0-98.0); MONOCYTE # 0.6 K/uL (0.0-1.0); MONOCYTE % 4.5 %; MPV 11.4 fl (9.4-12.4); NEUTROPHIL # (ANC) 10.6 K/uL (1.8-7.8); NEUTROPHIL % 81.5 %; NRBC % 0 /100WBC (0-0.00); PLATELET COUNT 169 K/uL (150-450); RBC 3.53 M/uL (3.50-5.50); RDW-CV 15.3 % (11.9-14.6)
[2017-01-04 05:28] LABS: CALCIUM 8.2 mg/dL (8.5-10.5); CREATININE 1.4 mg/dL (0.5-1.1); POTASSIUM 3.6 mMol/L (3.7-5.1)
[2017-01-04 05:36] LABS: ANION GAP 16.6 (10.0-19.0)
[2017-01-04 15:32] LABS: ANION GAP 15.4 (10.0-19.0); CALCIUM 8.4 mg/dL (8.5-10.5); CREATININE 1.3 mg/dL (0.5-1.1); MAGNESIUM 2.3 mg/dL (1.8-2.6); POTASSIUM 3.4 mMol/L (3.7-5.1)
--- NOTE | 2017-01-04 17:22 | NUR ---
Significant Event: Patient alert and is aphasic due to a history of a stroke. R) side of body flaccid. Patient can nod her head and say yes or no to questions. NG to L) nare with 250 ml out of bile drainage. NG clamped at [address] orders. Baptiste patent and drains clear yellow urine with 550 ml out for the shift. Patient repositioned q 2-3 hrs. Patient does have a productive cough of thick, clear phelgm. Temp at 1200 was 100.7 and then down to 99.5 at 1545. Accuchecks have been 183 and 146 with no sliding scale insulin needed. New orders to change IV fluids to D5W +20 KCL at 75ml/hr. Midline to her L) upper arm flushes well with good blood return. IV Dilantin dc'd and will start on liquid Dilantin through her NG tube. Continues on IV antibiotics. Telemetry on with 2 calls received regarding heartrate in the 30-40's with 3 sec pauses/second degree heart block. Dr Champagne notified and ordered a Cardiology consult and Dr Ramirez notified and ordered to hold Coreg for now and labs. Follow up: Contact isolation for VRE in urine.
--- NOTE | 2017-01-05 06:55 | NUR ---
Significant Event: Patient EKG done and troponin completed last night. Troponin was elevated at .238 and .252. D Dimer was also elevated at 1.02 Dr Berumen called but stated he is looking at a trend at this point. Echo this am and CXR also. Repositioned q 2 hours. Baptiste with 700 out. NG has remained clamped. We need to get Cath and CABG report from POA for Dr. Berumen. Generally not feeling well. Potassium through NG tube x 3 given last night. Follow up: Continue plan of care.
[2017-01-05 07:28] LABS: ANION GAP 12.2 (10.0-19.0); CALCIUM 8.5 mg/dL (8.5-10.5); CREATININE 1.3 mg/dL (0.5-1.1); POTASSIUM 4.2 mMol/L (3.7-5.1)
[2017-01-05 11:15] LABS: BASOPHIL % 0.4 %; EOSINOPHIL # 0.6 K/uL (0.0-0.5); EOSINOPHIL % 6.3 %; HEMATOCRIT 35.5 % (33.0-46.0); HEMOGLOBIN 11.6 g/dL (10.0-15.0); IMMATURE GRANULOCYTE # 0.1 K/uL (0.0-0.3); IMMATURE GRANULOCYTE % 0.5 %; LYMPHOCYTE # 1.4 K/uL (0.8-4.0); LYMPHOCYTE % 15.6 %; MCH 32.5 pg (27.0-34.0); MCHC 32.7 gm/dL (32.0-36.5); MCV 99.4 fl (83.0-98.0); MONOCYTE # 0.5 K/uL (0.0-1.0); MONOCYTE % 5.5 %; MPV 11.5 fl (9.4-12.4); NEUTROPHIL # (ANC) 6.6 K/uL (1.8-7.8); NEUTROPHIL % 71.7 %; NRBC % 0 /100WBC (0-0.00); PLATELET COUNT 149 K/uL (150-450); RBC 3.57 M/uL (3.50-5.50); WBC 9.3 K/uL (4.0-11.0)
[2017-01-05 11:22] LABS: PROTIME 14.8 SECONDS (9.8-11.4)
--- NOTE | 2017-01-05 19:49 | NUR ---
Significant Event: Patient alert and is aphasic but can answer questions with yes and no. Repositioned q 2-3 hrs. Patient was incontinent of a large, loose BM this morning. NG tube clamped with meds given through. Baptiste patent and drains yellow urine with 750 ml out for the shift. Started on the Heparin protocol for ACS. Patient received a 4000 unit bolus and the infusion was started at 1000 units/hr. PTTHP at 1710 was 59 so there was no adjustment in rate. Started on Mucomyst 1200 mg bid. New order to start on a clear liquid diet and if tolerating, may dc the NG tube. Patient tolerating sips of water and apple juice. Accuchecks have been 191 and 161 with no sliding scale insulin needed. Patient to have a CT scan with PE protocol tomorrow. Follow up: Reposition q 2hrs. Next PTTHP at 2315.
--- NOTE | 2017-01-06 04:35 | NUR ---
Significant Event: Patient had a large incontinent stool last night. Still has an NG tube that is clamped but can't be taken out if she continues to tolerate diet. Is to have a lexiscan to tomorrow. Patient is asphasic, but able to make needs know. Repositioned q 2hours. Tele on with no calls. Accuchecks q 6hrs. Follow up: Continue to monitor.
[2017-01-06 05:47] LABS: ANION GAP 11.7 (10.0-19.0); CALCIUM 8.5 mg/dL (8.5-10.5); CREATININE 1.1 mg/dL (0.5-1.1); POTASSIUM 3.7 mMol/L (3.7-5.1)
--- NOTE | 2017-01-06 14:16 | NUR ---
Patient is a 56 year old female who admitted to [facility] on 01/03/17 for recurrent UTI's and impaction. She has a PMH of CAD, status post CABG, complicated by a stroke. Stroke in the left MCA with a dense right hemiparesis as weel as dysphagia, MS, insulin-dependent diabetes, CKD stage 4, PVD, dysphagia, seizures, depression, neuromuscular bladder dysfunction, HTN. Patient had been at the hospital in [place] 1 week prior to being admitted to [facility]. During her hospital stay there she developed an ileus. GI was consulted and had a flex-sig done on Friday. NG tube is in place and it is clamped. Orders were received to start a clear liquid diet and if tolerates to remove the NG. Patient has not taken much in at this time. She had a lexiscan this AM. Also CT to rule out PE this morning. VSS and on RA. BP taken in the L)lower leg. Tele on. Accuchecks q6. Total lift. Baptiste in place. DNR. Alert and oriented x3, however unable to answer the questions due to dysphagia. Able to answer yes and no. Midline in her L)upper arm, fluids infusing. In isolation for VRE in her urine. Repositioning every 2 hours. This afternoon patient started having nausea and chest pain that was radiating down her left arm- Dr. Berumen notified and orderd to give a 0.4mg nitro sl, 12 lead EKG and to call back if unresolved- pain was unresolved if not worse. Dr. Berumen was renotified and he ordered to transfer to PCU to start a nitro drip. Cooperative with cares.
--- NOTE | 2017-01-06 14:35 | NUR ---
Spoke to staff at [facility] in [place], they are expecting patient to return there. She is truely self pay. Disabled as a child but has too many resources to get on the disability. 1510 Left a message for patient contact center team lead Zonia (Aunt) #[phone] - introducing myself and making sure the plan would be to return to SNF? Also who the family doctor was? Had attempted 3x to talk with family in patients room but was not able to locate them.
--- NOTE | 2017-01-06 20:12 | NUR ---
PATIENT STARTED ON NITRO GTT 5 MICS FOR INTERMITTENT CHEST PAIN, NO C/O PAIN AT TIME OF TRANSFER. NEAR END OF SHIFT, PATIENT REFUSED EKG AND LAB DRAW. DR LOPEZ NOTIFIED OF REFUSALS, HEPARIN GTT D/C'D A RESULT. CONTINUE WITH NITRO GTT AND IV FLUIDS.
--- NOTE | 2017-01-07 04:39 | NUR ---
Significant Event: PATIENT IS ALERT AND ANSWERS YES/NO TO QUESTIONS AND FOLLOWS MOST COMMANDS. VSS. HR 70-80'S. SBP 140-210'S. AFEBRILE. 02 SATS IN LOW TO UPPER 90'S ON RA. LUNGS CLEAR/DIM TO DIM. CONTINUES TO HAVE NON-PRODUCTIVE COUGH. PATIENT IS NON-AMBULATORY R/T HISTORY OF STROKE WITH RIGHT SIDED DEFICIT. BOWELS ACTIVE. C/O ABDOMINAL TENDERNESS. CDIFF TEST CAME BACK POSITIVE. STARTED ON IV FLAGYL. INCONTINENT OF BM. NG TO LEFT NARE CLAMPED. CHRONIC WILCOX INTACT WITH 750ML UOP. MULTIPLE BLADDER SPASMS. REDNESS TO BOTTOM. ALOE APPLIED AND PATIENT TURNED Q2H. MIDLINE TO LEFT UPPER ARM WITH NS AT 60 ML/HR AND NITRO INCREASED TO 10 MCG. ON Q6H ACCUCHECKS. OK TO DRAW LABS OFF MIDLINE. Follow up: CONTINUE TO MONITOR. POSSBILE TRANSFER TO ANOTHER FLOOR TODAY?
--- NOTE | 2017-01-07 08:20 | NUR ---
Patients Aunt Zonia called back. Patients doctor is Yaritza Crain. Plan would be for patient to return to SNF however Zonia is doubtful she will make it out of the hospital. Talked about financial situation. Will leave financial assistance forms in patients room if she is not there, plans to come down this morning. Zonia doesn't think she will qualify for assistance. SHe had no other questions or needs at this time.
--- NOTE | 2017-01-07 18:01 | NUR ---
PATIENT C/O CHEST PAIN AT 06:30 THIS AM. HR 80'S, SBP 190'S. NITRO INCREASED WITH NO RESULT. NITRO CONTINUED TO INCREASE TO 75MICS. PATIENT REFUSED EKG AND LAB DRAW. DR LOPEZ NOTIFIED, MORPHINE AND IV LOPRESSOR GIVEN WITH NO RELIEF. PATIENT'S POA NOTIFIED AND DR LOPEZ PAGED AGAIN. ABOUT 08:00 AM, PATIENT STATES CHEST PAIN WAS GONE. DR GAMBINO NOTIFIED THAT PATIENT DOES NOT WANT ANY AGGRESSIVE MEASURES. DR LOPEZ STATED TO LEAVE NITRO AT 75 MICS IF BP TOLERATES AND IF MORE CHEST PAIN THEN GIVEN MOPRHINE IV AGAIN. SBP DECREASED TO 110'S THIS AFTERNOON, HR 90'S-100'S. PATIENT REMAINED PAIN FREE REST OF SHIFT. PALLIATIVE CARE CONSULTED. NG REMOVED PER MD ORDER. BEDSIDE SWALLOW STUDY COMPLETED, PUREED FOOD AND THIN LIQUIDS ORDERED. PATIENT REFUSED LAB DRAWS, ACCUCHECKS AND EKGS TODAY. REPOSITIONED WITH ASSIST.
--- NOTE | 2017-01-08 04:30 | NUR ---
Significant Event: PATIENT IS ALERT AND ANSWERS YES/NO TO QUESTIONS AND SPEAKS A FEW OTHER WORDS. VSS. HR 90-100'S. SBP 130-160'S. AFEBRILE. 02 SATS IN MID 90'S ON RA. NO C/O PAIN. LUNGS CLEAR/DIM TO DIM THROUGHOUT. PATIENT NON-AMBULATORY AND FLACCID TO RIGHT SIDE DUE TO STROKE. BOWELS HYPOACTIVE. LARGE INCONTINENT VOID X1. IN ISOLATION FOR C-DIFF AND VRE IN URINE. CHRONIC WILCOX INTACT WITH 1150 ML UOP. CONTINUES TO HAVE REDNESS TO BOTTOM. MIDLINE TO LEFT UPPER ARM WITH NITRO AT 75 MCG/MIN AND NS AT 60 ML/HR. ON Q6H ACCUCHECKS. Follow up: CONTINUE TO MONITOR PER PLAN OF CARE.
--- NOTE | 2017-01-08 12:46 | NUR ---
A - PATIENT SCREENED D/T LOS. RIGHT HEMIPLEGIA. APHASIC, ABLE TO ANSWER YES/NO. C-DIFF POSITIVE. NG DISCONTINUED 01/07. ST FOLLOWING PATIENT. PALLIATIVE CONSULTED 01/07. HT: 154.94CM, WT: 253#, IBW 45 KG (ADJUSTED FOR HEMIPLEGIA), %IBW 254% LABS: GLU 189, ALB 3.0, PROBNP 5951, A1C 6.4Z5 MEDS: LEVEMIR, ZYVOX, LACTINEX, ZOFRAN. DIET: PUREE W/ THIN LIQUID. INTAKE 0-25% X1 MEAL. PT NOD YES FOR POOR APPETITE DUE TO TEXTURE OF FOOD. OFFERED ENSURE, PATIENT DECLINED. AGREED FOR DIFFERENT NUTRITION SUPPLEMENT. DISCUSSED LIKES AND DISLIKES. EST NEEDS: [id number] KCAL (11-14 KCAL/KG), 68-90 GRAMS PROTEIN (1.5-2 GRAMS/KG IBW), FLUID NEEDS: 1ML/KCAL D - INADEQUATE ORAL INTAKE RELATED TO DECREASED APPETITE SECONDARY TO DISLIKING TEXTURE OF FOOD EVIDENCED BY PO 0-25% AND PATIENT REPORT. I - PT AGREED TO TRY CIB 3X/DAY AND ENSURE CLEAR BID. M/E - GOAL: PT WILL BE ABLE TO TOLERATE >50% OF MEALS AND AT LEAST TWO ORAL SUPPLEMENTS PER DAY IN 2-4 DAYS.
--- NOTE | 2017-01-08 16:25 | NUR ---
Talked with Frederick' RN, Brittany, she tells me that DR. Quezada indicated to her that Noris will be able to switch from IV Abxs to oral IV Abxs and go back to SNF tomorrow. I called and left a VM with EMELIA at [facility], updating them to this and also let them know I would need a [place] van to come and pick her up if they were available. Also called and talked with ZAHRAA Brar, , for Noris. Updated her to all of the above. She was in agreement with this plan. Asked that we update her tomorrow once we have for sure that Noris will go to the SNF and at what time. No other questions, needs or concerns. CM to continue to follow and assist.
[2017-01-08] MEDS ORDERED: RANITIDINE HCL150 M1 PO (18:08)
[2017-01-08] MEDS ORDERED: NORCO 5-325 TA1 EACH PO ×2 (18:09)
[2017-01-08] MEDS ORDERED: CALCIUM 600 +1 EACH PO (18:10)
[2017-01-08] MEDS ORDERED: ACIDOPHILUS1 EAC2 PO (18:10)
[2017-01-08] MEDS ORDERED: VASOTEC20 MG PO (18:10)
[2017-01-08] MEDS ORDERED: ROBITUSSIN DM120 ML PO (18:11)
[2017-01-08] MEDS ORDERED: ALLEGRA60 MG PO (18:11)
[2017-01-08] MEDS ORDERED: ZAROXOLYN2.5 MG PO (18:12)
[2017-01-08] MEDS ORDERED: IMODIUM2 MG PO (18:12)
[2017-01-08] MEDS ORDERED: MILK OF MA400 MG/5 M PO (18:13)
[2017-01-08] MEDS ORDERED: MIRALAX17 GM PO (18:15)
[2017-01-08] MEDS ORDERED: MS CONTIN15 MG PO (18:15)
[2017-01-08] MEDS ORDERED: SENNA S TABLET1 EACH PO (18:16)
[2017-01-08] MEDS ORDERED: MUCINEX600 MG PO (18:16)
--- NOTE | 2017-01-08 19:27 | NUR ---
Significant Event:Patient been in Nitro, are currently weaning it. It is at 45 mcg/min. No c/o chest pain. Did have some Morphine IV once for c/o epigastric distress. Restarted her MSContin as before hospital stay. Started on regular diet. Did have a bladder spasm this am, had large incont urine. No stool. Follow up:Home tomorrow
--- NOTE | 2017-01-09 04:39 | NUR ---
Patient is aphasic answers questions yes or no. VSS on RA. Lungs clear/diminished. Bowel sounds present, NO BM this shift. Chronic Baptiste, Neurogenic bladder hads spasms and leak around cath. Bilateral leg spasms ativan x3 with relief noted. Mid line to Lt upper arm Saline locked. No chest pain. Right sided flaccid, lift patient. Back to [place] today.
--- NOTE | 2017-01-09 15:21 | NUR ---
Call from Lucia BLANCAS at [facility] wanting an update from nursing on Eileen and to voice some concerns that she had about Eileen coming back to them today. Lucia talked at length with both PATTIE Soto and PATTIE Boateng about all of her concerns and questions. AFter they got done talking, Tasneem called Dr. Quezada and brought up all the concerns that Lucia had told both her and Brittany. AFter Tasneem talked with Dr. Quezada, it was decided that Eileen would stay with us one more day and then dismiss back to them tomorrow. Lucia tells me that they will plan on getting an RN update early tomorrow morning and then if all that goes well, then they will have a van here at 1300 to crab picker at that time. I updated Zonia ALEENAFaheem to this, she is fine with this plan and just asks that we update her tomorrow morning. CM to continue to follow and assist.
--- NOTE | 2017-01-09 18:49 | NUR ---
Significant Event:Patient didn't go back to care home, they wanted to be sure that her BP was controlled and that her pain was controlled. Restarted alot of her home meds and her SBP has been much better. Appetite is improved. Did have some leg spasms, Hope given and her legs were massaged and warm blamkets applied, the spasms were relieved. Follow up:CALEB colin; smitha to care home tomorrow
--- NOTE | 2017-01-10 04:14 | NUR ---
Patient nods head appropriate to questions. VVS on RA. RT side flaccid, full lift. Mid line LT upper arm saline locked. Incont of urine. Bowel sounds present, no BM this shift. Lungs clear/diminished. Bowel sounds present. PRN norco for leg pain at 0300. Back to [place] today?
--- NOTE | 2017-01-10 10:01 | NUR ---
Patient is alert, oriented. Answers questions with a Yes/No and head nod. Given norco schedule, had some LUQ pain, relieved with the norco. Bowel sounds active, passing flatus, last BM 01/08/17. Incontinent of urine. Appetite getting better, ate 100% of breakfast. Hailee-area red, as well as bottom, applying moisture barrier cream. L) big toe is ecchymotic. Turning every two hours. Takes medications 1 at a time, with pudding. Regular diet, thin liquids, no straws.
--- NOTE | 2017-01-10 12:43 | NUR ---
Talked with Tasneem from [facility], she tells me that Dr. Quezada rounded and filled out orders for Eileen to go back to [facility] today. However, he did not allow her to go back with Roxenol that Tasneem had told MAGALIS Myers that she would be able to come with. I provided the Brayanlisa' number to Tasneem and asked that she call and talk about this with her as they had talked at length yesterday re:medications and concerns they had. Tasneem did call and talk with MAGALIS Myers, they got the situation figured out and the [place] van will be here at 1300 to sisal picker Eileen. I faxed orders over to SNF prior to Eileen leaving. I also left MAGALIS Myers a VM making sure that she got the orders and that we were still fine with Eileen coming back to them day. No call back from her at this time. RN to RN number was given to PTATIE Hernandez to call in report around [address] [facility] will be here at 1300 to sisal picker. Stopped in Pams' room, she is happy that she gets to go home today. Left a VM with her POA, Zonia, to let her know about the plans for Eileen to go back to SNF today at [address] [facility]. Left my contact information for her to call me if she had any issues. No other questions, needs or concerns. CM to continue to follow and assist. Plan return back to [facility].
== END 2017-01-10 13:39 | DRG 871 ==
LOC: GMSU 12:00 → GPCU 13:04
PROVIDERS: Internal Medicine Interventional Cardiology; ADMIT Internal Medicine
DX: A41.81 Sepsis due to Enterococcus (principal); I21.4 Non-ST elevation (NSTEMI) myocardial infarction; I47.2 Ventricular tachycardia; N17.9 Acute kidney failure, unspecified; N18.4 Chronic kidney disease, stage 4 (severe); A04.7 Enterocolitis due to Clostridium difficile; N30.00 Acute cystitis without hematuria; K56.7 Ileus, unspecified; E87.0 Hyperosmolality and hypernatremia; I69.351 Hemiplegia and hemiparesis following cerebral infarction affecting right dominant side; E87.6 Hypokalemia; I16.0 Hypertensive urgency; G35 Multiple sclerosis; I25.10 Atherosclerotic heart disease of native coronary artery without angina pectoris; E11.22 Type 2 diabetes mellitus with diabetic chronic kidney disease; I12.9 Hypertensive chronic kidney disease with stage 1 through stage 4 chronic kidney disease, or unspecified chronic kidney disease; R78.5 Finding of other psychotropic drug in blood; G40.909 Epilepsy, unspecified, not intractable, without status epilepticus; Z95.5 Presence of coronary angioplasty implant and graft; Z95.1 Presence of aortocoronary bypass graft; Z88.0 Allergy status to penicillin
CPT/HCPCS: A9500; C1751; C9113; J1165; J1364; J1644; J2020; J2060; J2270; J2405; J2785; J3475; J3480; J7030; J7040; J7050; J7060; J7120; Q9967